=== PATIENT | male | born 1950 | race Caucasian/White ===

== ENCOUNTER 2020-12-17 20:26 | Emergency (ER) | payer MEDICARE, OTHER ==
[~2020-12-17] VITALS: Ht 172.7 cm; Wt 86.2 kg
--- NOTE | 2020-12-17 20:42 | NUR ---
PT AAOX4. BIBRA 839 FROM HOME FOR C/O R RIB PAIN S/P TRIP AND FALL. -KO. PLACED IN BED 11 ON MONITOR AND PULSE OX. AWAITING ORDERS.
[2020-12-17] MEDS ORDERED: KETOROLAC TROMETHAMINE INJ 30 MG/ML VIAL ONE (20:57)
[2020-12-17] MEDS ORDERED: FENTANYL PF 100MCG/2ML AMPUL ONE (20:57)
[2020-12-17] MEDS: FENTANYL PF 100MCG/2ML AMPUL IM ONE (21:16)
[2020-12-17] MEDS: KETOROLAC TROMETHAMINE INJ 30 MG/ML VIAL IM ONE (21:16)
[2020-12-17] MEDS ORDERED: IBUP-1957 PO (21:56)
[2020-12-17] MEDS ORDERED: ACET-2605 PO (21:56)
--- NOTE | 2020-12-17 23:01 | NUR ---
Patient discharged to home in stable condition. Written and verbal after care instructions given. Patient verbalizes understanding of instruction. Pt ambulated out of ED. VSS.
[2020-12-17 23:14] VITALS: BP 139/76
== END 2020-12-17 23:14 | disposition home or self-care (01) ==
LOC: ER 20:28
DX: R07.89 Other chest pain (principal); E11.9 Type 2 diabetes mellitus without complications; Z79.899 Other long term (current) drug therapy; Z60.2 Problems related to living alone
CPT/HCPCS: 71100; 96372 ×2; 99284; J1885; J3010